=== PATIENT | female | born 1945 ===

== ENCOUNTER 2017-07-30 19:06 | Inpatient (IN) | payer MEDICARE, OTHER ==
[~2017-07-30] VITALS: Ht 157.5 cm; Wt 104.6 kg
[2017-07-30 21:20] VITALS: BP 120/75; PULSE 70; TEMP 36.9; O2SAT 96; Ht 157.5 cm; Wt 104.6 kg
--- NOTE | 2017-07-30 21:56 | Critical Care Consultation ---
Critical Care Consultation Date of Consultation: Jul 30, 2017. Attending Physician: Vinayak Quintana M.D. Reason for Consultation: Hypotension susp of Pulm Embolism History of Present Illness [place] duran underwent a total left knee replacement on Friday 07/28 without issue and was discharged on 07/29. Today patient was noted by daughter INO to be diaphoretic and patient complained of feeling poorly with nausea. She does state that her urine output is decreased and dark. She has had increasing shortness of breath with cough since the surgical procedure. Patient has not recorded any temperatures despite feeling warm temperature at [facility] was 97.7 F and she is also afebrile at this facility. During her time in the emergency room at [facility] patient was noted to be hypotensive with systolic pressures in the 80s requiring fluid boluses. Patient did undergo a 12-lead echocardiogram that was unremarkable however her troponin was elevated as was her CPK. Secondary to acute kidney injury patient could not undergo CT angiogram to rule out pulmonary embolism and was started on heparin infusion and transferred to [facility] as a direct admit. Upon my meeting the patient she is comfortable and not ill-appearing. Her blood pressures have resolved systolic was 120 during my examination. She has no acute complaints of calf tenderness knee tenderness at the site of operation. She is on 2 L nasal cannula and feels comfortable. Patient denies taking any post operative antibiotics in the outpatient setting. Patient states she has not been eating since the evening of her surgery on Wednesday. And has had very little fluid intake during this period of time as well. The patient denies weight loss, fever, dizziness, headache, muscle weakness, numbness, change in vision, sore throat, chest pain, palpitations, awareness of tachyarrhythmias, leg swelling, cough, bloody stools, diarrhea, constipation, abdominal pain, other changes in bowel habits. Patient continues with a mild amount of nausea but no vomiting. Past Medical/Surgical History Medical Problems: Troponin I above reference range Hypertension Anxiety/depression History of CVA Gout Obesity Hyperlipidemia History of UTIs Surgical history: Left total knee arthroplasty 07/28/2017 Social History Smoking Status: Never Smoker Marital Status: Housing Status: lives alone Allergies Coded Allergies: Sulfamethoxazole w/Trimethoprim (Verified Allergy, Intermediate, RASH, ) Sulfa Antibiotics (Verified Allergy, Unknown, RASH, 07/30/17) NEVER RECEIVED LASIX PER PATIENT. Home Medications Scheduled Allopurinol (Zyloprim), 1 TAB PO DAILY Alprazolam (Xanax), 0.5 MG PO HS Aspirin (Aspirin), 325 MG PO BID Atenolol/Chlorthalidone (Tenoretic 50 Mg/25 Mg), 1 TAB PO DAILY Citalopram Hydrobromide (Citalopram Hydrobromide), 1 TAB PO DAILY Melatonin (Melatonin Maximum Strengt), 1 TAB PO HS Omeprazole (Prilosec), 20 MG PO DAILY Polyethylene Glycol 3350 (Miralax), 17 GM PO DAILY Scheduled PRN Hydrocodon/Acetaminophen 5MG/300MG (Vicodin (5MG/300MG)), 2 TABS PO Q4H PRN for Pain Current Inpatient Medications Aspirin Hydrocodone\acetaminophen MiraLAX Xanax Allopurinol Atenolol/chlorthalidone Celexa Omeprazole Melatonin Review of Systems 12 systems reviewed and negative other than previously mentioned in the HPI. Physical Exam Vital Signs - as noted Laboratory Data - as noted Physical Exam: General - NAD Eyes - PERRL, EOMI No icterus, gaze conjugate ENT - Mucosa moist, no lesions or candidiasis Neck - Supple, trachea midline, no masses or lymphadenopathy, no JVD or bruits Lungs - No paradoxical chest wall movement, clear to auscultation bilaterally, no wheezes, rales, or rhonchi Heart - Reg rate and rhythm, No murmur, rubs, clicks, or gallops appreciated Abdomen - normoactive BS present, no bruits noted, tympanic to percussion, soft , nontender, nondistended, no organomegaly Extremities - Surgical dressing in place on left knee mild erythema without warmth or swelling noted, No edema, pedal pulses intact Neuro - A&OX3 Strength extremities equal and appropriate bilaterally Reflexes: Normal and equal CN:PERRL, EOMI, no facial asymmetry, uvula/tongue midline Laboratory Results SEE EMR Diagnostic Results Venous Doppler study of bilateral lower extremities demonstrates no evidence of DVT Assessment & Plan (1) ERIC (acute kidney injury) (2) Dehydration (3) Hypotension (4) Elevated troponin Reason Critically Ill: Patient is an 72-year-old female who is transferred to the ICU for hypotension in the setting of dehydration s/p L TKA with elevated lactic acid and cardiac enzymes without acute ischemia noted on EKG. PLAN: Neuro: * No unilateral changes noted * Patient does not report pain Resp: * Supplemental oxygen as required * Suspicious of pulmonary embolism * Continue heparin infusion * Bilateral lower extremity Doppler: pending * Adequate saturations on telemetry, titrate oxygen per protocol CV: * Elevated troponins in the setting of EKG without signs of acute ischemia * Trend troponin * Repeat EKG in a.m. * Obtain echocardiogram * Monitor on telemetry * Home atenolol/chlorthalidone held * Heart rate upper 60s monitor for tachycardia * Hypotension now resolved received 2500 cc of normal saline at [facility] prior to arrival * Blood pressure is running 120s-130s systolically Fluids/Renal: * Acute kidney injury noted likely secondary to dehydration * Continue fluids: Normal saline +20 mEq of potassium at 150 mL/h * Trend BUN and creatinine * Green in place to gravity ID: * Abx: We will continue to monitor for need of antibiotics * Currently patient is afebrile without a leukocytosis * However did have a lactic acid which has repeated as 2.1 GI/Nutrition: * Diet in place * Abnormal LFTs: Repeat following day * Protonix in place Heme: * Heparin infusion * No indication for DVT prophylaxis while on heparin infusion * Monitor hemoglobin and hematocrit, no signs of gross bleeding Endocrine: Accu-Checks per protocol, started insulin infusion for 2 blood sugars greater than 180 CCT: 45 Minutes; This time is exclusive of all separately billable procedures. Thank you for involving us in the care of this patient. Please refer to Dr. Florentin Mahajan's addendum for further recommendations.
[2017-07-30] MEDS ORDERED: ACETAMINOPHEN 325 MG TAB PO PRN (22:00)
[2017-07-30] MEDS ORDERED: HYDROmorphone HCL 2 MG TAB PO PRN (22:00)
[2017-07-30] MEDS ORDERED: ICU PROTOCOL FOR HYPERGLYCEMIA PRN (22:00)
[2017-07-30] MEDS ORDERED: PATIENT'S ALLERGY INFO NEEDS ENTERED SCH (22:15)
[2017-07-30] MEDS ORDERED: PATIENT'S HEIGHT AND/OR WEIGHT NEEDED SCH (22:15)
[2017-07-30 22:30] LABS: HEMATOCRIT 31.2 % (37-47); HEMOGLOBIN 11.3 g/dL (12.0-16.0); IG# 0.03 K/uL (0.00-0.02); LYMPH % 17.6 %; LYMPH ABS # 1.78 K/uL (1.2-3.4); MEAN CELL VOLUME 86.4 fL (80-100); MEAN CORPUSCULAR HEMOGLOBIN 31.3 pg (25-34); MEAN CORPUSCULAR HGB CONC 36.2 g/dl (32-36); MEAN PLATELET VOLUME 9.2 fL (7.4-10.4); MONO % 8.4 %; MONO ABS # 0.85 K/uL (0.11-0.59); NEUT % 73.7 %; NEUT ABS # 7.46 K/uL (1.4-6.5); PLATELET COUNT 154 K/uL (130-400); RED CELL DISTRIBUTION WIDTH CV 14.1 % (11.5-14.5); RED CELL DISTRIBUTION WIDTH SD 44.5 fL (36.4-46.3); WHITE BLOOD COUNT 10.12 K/uL (4.8-10.8)
--- NOTE | 2017-07-30 22:34 | History and Physical ---
History & Physical Date & Time of Service: Jul 30, 2017 at 22:08 Chief Complaint: SHOCK Primary Care Physician: No Doctor, Assigned History of Present Illness Source: patient 72 y/o F Hx HTN, NPL, gout, CVA, obesity. Pt is post L TKA at [facility] . Since the surgery, she states she has suffered from nausea and heaving without vomiting and has not had any PO intake aside from a small amount of water. Today when attempting to ambulate, she became profusely diaphoretic, SOB , and was noted to be hypoxic and mildly hypotensive. A workup at [facility] revealed multiple lab abnormalities including ARF, elevated LFTs, elevated lactic and an elevated CK and troponin. An EKG did not support acute ischemia. It was speculated that she may have suffered an acute PE. Due to her renal function, a CT chest was differed and a decision was made to transfer to [facility]. The pt was placed on full dose Heparin and arrived at the ICU a few hours later. At the time of admission, she denies CP or SOB. She remains mildly nauseous. She exhibits stable vital signs and does not display tachycardia or tachypnea. Her oxygen saturation on 2L NC is 98%. The pt is afebrile. Leukocytosis and lactic acidosis are noted on review of labs from [facility]. There is no clear source of infection at present. Past Medical/Surgical History 1) HTN 2) HPL 3) CVA on MRI 2013 4) Gout 5) Obese 6) L TKA - 07/28/17 Family History Noncontributory Social History Smoking Status: Never Smoker Allergies Coded Allergies: Sulfamethoxazole w/Trimethoprim (Verified Allergy, Intermediate, RASH, ) Sulfa Antibiotics (Verified Allergy, Unknown, RASH, 07/30/17) NEVER RECEIVED LASIX PER PATIENT. Home Medications Scheduled Allopurinol (Zyloprim), 1 TAB PO DAILY Alprazolam (Xanax), 0.5 MG PO HS Aspirin (Aspirin), 325 MG PO BID Atenolol/Chlorthalidone (Tenoretic 50 Mg/25 Mg), 1 TAB PO DAILY Citalopram Hydrobromide (Citalopram Hydrobromide), 1 TAB PO DAILY Melatonin (Melatonin Maximum Strengt), 1 TAB PO HS Omeprazole (Prilosec), 20 MG PO DAILY Polyethylene Glycol 3350 (Miralax), 17 GM PO DAILY Scheduled PRN Hydrocodon/Acetaminophen 5MG/300MG (Vicodin (5MG/300MG)), 2 TABS PO Q4H PRN for Pain Review of Systems Constitutional: + fever, + weakness Eyes: No worsening of vision ENT: No hearing loss, No nasal symptoms Respiratory: + shortness of breath (AM - resolved), No cough, No sputum, No wheezing Cardiovascular: No chest pain, No orthopnea, No PND Abdomen: + nausea, + problem reported (dry heaving and poor alexandr), No pain Genitourinary - Female: No dysuria, No urinary frequency, No urinary urgency Neurologic: No memory loss, No weakness Psychiatric: No depression symptoms Endocrine: No fatigue Hematologic / Lymphatic: No abnormal bleeding/bruising Integumentary: No rash Allergic / Immunologic: No environmental allergies Physical Exam General Appearance: WD/WN, no apparent distress, + obese Head: normocephalic Eyes: normal inspection ENT: normal ENT inspection, pharynx normal Neck: supple Respiratory/Chest: chest non-tender, lungs clear, normal breath sounds Cardiovascular: regular rate, rhythm, no edema, no gallop Abdomen/GI: normal bowel sounds, non tender, soft Back: normal inspection, no CVA tenderness Extremities/Musculoskelatal: + pertinent finding (L leg surgical wound - no evidence of infection or cellulitis presently) 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 Pt is post L TKA at [facility] . Since the surgery, she states she has suffered from nausea and heaving without vomiting and has not had any PO intake aside from a small amount of water. Today when attempting to ambulate, she became profusely diaphoretic, SOB , and was noted to be hypoxic and mildly hypotensive. A workup at [facility] revealed multiple lab abnormalities including ARF, elevated LFTs, elevated lactic and an elevated CK and troponin. An EKG did not support acute ischemia. It was speculated that she may have suffered an acute PE. Due to her renal function, a CT chest was differed and a decision was made to transfer to [facility]. The pt was placed on full dose Heparin and arrived at the ICU a few hours later. At the time of admission, she denies CP or SOB. She remains mildly nauseous. She exhibits stable vital signs and does not display tachycardia or tachypnea. Her oxygen saturation on 2L NC is 98%. The pt is afebrile. Leukocytosis and lactic acidosis are noted on review of labs from [facility]. There is no clear source of infection at present. 1) Elevated trop post-op - differential includes NSTEMI, sepsis, PE. ARF may be contributing to elevation. She has been placed on Heparin. ASA and a Statin will be added. We will recheck her renal function AM and if this corrects we would consider a CTA. For now a LE US is pending as is an echo to evaluate for wall motion abnormalities. 2) Possible sepsis - we are not presently able to confirm fevers or a source of infection - consideration would be the op site and a lung process which have not been ruled out. A UA is pending on admission as is a repeat lactic and CBC. We will make a decision on antibiotic treatment based on the result. 3) ARF - likely prerenal or ATN post-op - will obtain urine lytes and continue aggressive hydration 4) LFTs elevated - possibly due to hypotension/shock liver - no evidence of acute abdominal process at present 5) HTN - she normally takes a combination of Atenolol and a diuretic. Held in favor of a divided dose of Metoprolol with parameters 6) HPL - Placed on Lipitor 7) Gout - Allopurinol held due to ARF - employ steroids in event of flair if renal impairment persists 8) History of CVA - ASA, Statin provided 9) Gout - Hold Allopurinol due to ARF Full code - Full-dose Heparin Total time for this admit including review of labs, meds, imaging, records - discussion with pt, family and ICU attending - including critical care time - 48 min Resuscitation Status VTE Prophylaxis Will order VTE Prophylaxis: Yes
[2017-07-30 22:46] LABS: ALBUMIN 2.7 gm/dl (3.4-5.0); CREATININE 1.91 mg/dl (0.60-1.20); POTASSIUM 3.7 mmol/L (3.5-5.1)
[2017-07-30 22:48] LABS: INR 1.3 (0.9-1.1)
[2017-07-30 22:49] LABS: PTT PATIENT 62.3 SECONDS (21.0-31.0)
[2017-07-30] MEDS: HEPARIN 25,000 UNIT/500ML D5W 500 ML IV SCH (23:12)
[2017-07-30] MEDS: NSS + 20MEQ KCL 1000ML 1,000 ML IV SCH (23:13)
[2017-07-30] MEDS ORDERED: ASPECOTC PO (23:41)
[2017-07-30] MEDS ORDERED: HYDR-3419 PO (23:42)
[2017-07-30] MEDS ORDERED: ALPR-411 PO (23:43)
[2017-07-30] MEDS ORDERED: POLY335019 PO (23:43)
[2017-07-30] MEDS ORDERED: ALLO100T PO (23:44)
[2017-07-30] MEDS ORDERED: ATEN-171 PO (23:44)
[2017-07-30] MEDS ORDERED: CITA20TA4 PO (23:45)
[2017-07-30] MEDS ORDERED: PRLSR20 PO (23:46)
[2017-07-30] MEDS ORDERED: MELATAB2 PO (23:47)
[2017-07-31] VITALS (13 sets, daily range): BP systolic 104–146; BP diastolic 59–86; PULSE 69–84; TEMP 36.3–37.1; O2SAT 92–98
[2017-07-31] MEDS: NSS + 20MEQ KCL 1000ML 1,000 ML IV SCH ×4 (05:59→20:38)
[2017-07-31 06:04] LABS: BASO % 0.2 %; BASO ABS # 0.02 K/uL (0-0.2); EOS % 0.2 %; EOS ABS # 0.02 K/uL (0-0.5); HEMATOCRIT 30.5 % (37-47); HEMOGLOBIN 10.5 g/dL (12.0-16.0); IG# 0.01 K/uL (0.00-0.02); LYMPH % 19.1 %; LYMPH ABS # 2.09 K/uL (1.2-3.4); MEAN CELL VOLUME 87.4 fL (80-100); MEAN CORPUSCULAR HEMOGLOBIN 30.1 pg (25-34); MEAN CORPUSCULAR HGB CONC 34.4 g/dl (32-36); MEAN PLATELET VOLUME 9.7 fL (7.4-10.4); MONO % 8.7 %; MONO ABS # 0.95 K/uL (0.11-0.59); NEUT % 71.7 %; NEUT ABS # 7.85 K/uL (1.4-6.5); PLATELET COUNT 172 K/uL (130-400); RED CELL DISTRIBUTION WIDTH CV 14.1 % (11.5-14.5); RED CELL DISTRIBUTION WIDTH SD 44.9 fL (36.4-46.3); WHITE BLOOD COUNT 10.94 K/uL (4.8-10.8)
--- NOTE | 2017-07-31 06:05 | DIAGNOSTIC IMAGING REPORT ---
ULTRASOUND VENOUS DOPPLER LWR EXT BILA CLINICAL HISTORY: Suspected pulmonary embolism. History of total knee arthroplasty. EKG changes. COMPARISON STUDY: No previous studies for comparison. FINDINGS: Real-time and color flow Doppler imaging were performed. Flow was seen within the femoral, popliteal and calf veins with no intraluminal thrombus demonstrated. The saphenous vein is patent. IMPRESSION: No evidence of lower extremity DVT. Electronically signed by: Lui Onofre M.D. 07/31/2017 6:04 AM Dictated Date/Time: 07/31/2017 6:03 AM
[2017-07-31 06:26] LABS: PTT PATIENT 74.4 SECONDS (21.0-31.0)
[2017-07-31 06:38] LABS: ALBUMIN 2.6 gm/dl (3.4-5.0); CALCIUM 8.7 mg/dl (8.5-10.1); CREATININE 1.42 mg/dl (0.60-1.20); POTASSIUM 3.7 mmol/L (3.5-5.1)
[2017-07-31 06:46] LABS: TOTAL PROTEIN 5.7 gm/dl (6.4-8.2)
[2017-07-31] MEDS: ATORVASTATIN 20 MG TAB PO SCH ×2 (07:41→09:00)
[2017-07-31] MEDS: CITALOPRAM 20 MG TAB PO SCH (07:41)
[2017-07-31] MEDS: PANTOprazole SOD 40 MG TAB PO SCH (07:41)
[2017-07-31] MEDS: ASPIRIN 81 MG ECTAB PO SCH (07:41)
[2017-07-31] MEDS: MAGNESIUM OXIDE 400 MG TAB PO SCH ×3 (07:41→18:14)
[2017-07-31] MEDS: METOPROLOL TARTRATE 25 MG TAB PO SCH ×2 (07:41→20:21)
[2017-07-31] MEDS ORDERED: ROSU5TAB PO (09:11)
[2017-07-31] MEDS ORDERED: ROSUVASTATIN CALCIUM 5 MG TAB PO ONE (09:15)
[2017-07-31] MEDS ORDERED: OXYCODONE HCL IR 5 MG TAB (IMMEDIATE RELEASE) PO PRN (09:15)
[2017-07-31] MEDS: HYDROCODONE/ACETAMIN 5/325MG TAB PO PRN ×2 (11:28→20:22)
[2017-07-31 13:23] LABS: PTT PATIENT 66.5 SECONDS (21.0-31.0)
--- NOTE | 2017-07-31 14:49 | Critical Care Progress Note ---
Critical Care Progress Note Date of Service Jul 31, 2017. ICU Day ICU Day Number: [address] Mahajan Subjective No complaints of chest pain, shortness of breath, fevers, chills, nausea, vomiting. No complaints of bleeding of the left lower extremity, no significant pain in the left lower extremity. Sitting upright in the chair tolerated breakfast well Objective General: Alert. nontoxic. Skin: Warm, dry, Head: Atraumatic Ears, nose, mouth and throat: airway patent Cardiovascular: Normal peripheral perfusion Respiratory: no respiratory distress Gastrointestinal: Non distended Musculoskeletal: Dressing over her left knee, very small shadowing at inferior portion of the dressing, no evidence of surrounding cellulitis nor erythema outside of the dressing. Assessment & Plan PLAN: Neuro: * No unilateral changes noted * Patient does not report pain Resp: * Tolerating room air * Bilateral venous duplex negative * Much lower suspicion for pulmonary embolism CV: Prolonged QTC * Elevated troponins in the setting of EKG without signs of acute ischemia * Troponins decreasing * Repeat EKG: Prolonged QTC and diffuse T-wave inversions that were not present on EKG compared to prior EKG from outside hospital * Obtain echocardiogram * Continue heparin infusion for possible N STEMI * Monitor on telemetry * Home atenolol/chlorthalidone held * Heart rate upper 60s monitor for tachycardia * Hypotension now resolved received 2500 cc of normal saline at [facility] prior to arrival * Blood pressure is running 120s-130s systolically Fluids/Renal: * Acute kidney injury noted likely secondary to dehydration * Significant improvement * Green in place to gravity ID: * Abx: continue to monitor for need of antibiotics * I do not feel the patient is septic, I believe this is secondary to volume depletion GI/Nutrition: * Diet in place Transaminitis * Abnormal LFTs: Repeat following day * Hepatitis C negative * Significance of a transaminitis unclear at this time * Protonix in place Heme: * Heparin infusion * Monitor hemoglobin and hematocrit, no signs of gross bleeding Endocrine: Accu-Checks per protocol I believe the patient's hypotension and shock state was secondary to profound volume depletion. I would continue the heparin drip at this time and on further trend and monitor her cardiovascular status I think the diagnosis of pulmonary embolism is considerably much lower on the differential and the heparin drip would certainly be therapeutic if that were in fact the diagnosis. Given the stable vital signs and resolution of her lactic acidosis I believe she is stable for downgrade to telemetry status. Data Medications: Current Inpatient Medications Medications (Trade) Dose Ordered Sig/Estiven Route Start Time Stop Time Status Last Admin Dose Admin Acetaminophen (Tylenol Tab) 650 mg Q4H PRN PO 07/30/17 22:00 08/29/17 21:59 Aspirin (Ecotrin Tab) 81 mg QAM PO 07/31/17 09:00 08/30/17 08:59 07/31/17 07:41 81 MG Pantoprazole Sodium (Protonix Tab) 40 mg DAILY PO 07/31/17 09:00 08/30/17 08:59 07/31/17 07:41 40 MG Hydromorphone HCl (Dilaudid Tab) 0.5 mg Q4H PRN PO 07/30/17 22:00 08/13/17 21:59 Miscellaneous Information (Icu Protocol For Hyperglycemia) 1 ea PRN PRN N/A 07/30/17 22:00 08/01/17 21:59 Heparin Sodium/ Dextrose 500 ml @ 25 mls/hr Q20H IV 07/30/17 22:45 08/29/17 22:44 07/30/17 23:12 26 MLS/HR Alprazolam (Xanax Tab) 0.5 mg HS PO 07/31/17 21:00 08/30/17 20:59 Citalopram Hydrobromide (celeXA TAB) 20 mg DAILY PO 07/31/17 09:00 08/30/17 08:59 07/31/17 07:41 20 MG Acetaminophen/ Hydrocodone Bitart ([place] 5/325 Tab) 2 tab Q4H PRN PO 07/31/17 00:15 08/30/17 00:14 07/31/17 11:28 2 TAB Metoprolol Tartrate (Lopressor Tab) 25 mg BID PO 07/31/17 09:00 08/30/17 08:59 07/31/17 07:41 25 MG Magnesium Oxide (Mag-Ox Tab) 400 mg Q4H PO 07/31/17 07:15 07/31/17 15:16 07/31/17 11:28 400 MG Rosuvastatin Calcium (Crestor Tab) 5 mg QAM PO 08/01/17 09:00 08/31/17 08:59 Potassium Chloride/Sodium Chloride 1,000 ml @ 150 mls/hr Q6H40M IV 07/31/17 09:45 08/30/17 09:44 07/31/17 13:53 150 MLS/HR Miscellaneous Information (Nursing Heparin Iv Rate Change) 1 ea ONE ONCE N/A 07/31/17 14:10 07/31/17 14:11 UNV I & O: 24-Hour Column 08/01/17 08:00 Intake Total 1850 ml Output Total 350 ml Balance 1500 ml Vital Signs: Date Time Temp Pulse Resp B/P (MAP) Pulse Ox O2 Delivery O2 Flow Rate FiO2 07/31/17 12:47 36.4 84 18 104/59 (74) 96 Room Air 07/31/17 12:01 93 Room Air 07/31/17 10:45 36.5 71 18 110/69 (83) 93 Room Air 07/31/17 10:19 37.1 70 18 98 2.0 07/31/17 08:00 37.1 70 18 104/64 (77) 98 Nasal Cannula 2.0 07/31/17 08:00 98 Nasal Cannula 2.0 07/31/17 06:00 69 20 118/86 (97) 95 Nasal Cannula 2.0 07/31/17 04:00 36.7 70 18 146/65 (92) 96 Nasal Cannula 2.0 07/31/17 04:00 Nasal Cannula 2.0 07/31/17 02:00 71 20 115/79 (91) 94 Nasal Cannula 2.0 07/31/17 00:01 36.9 72 22 117/59 (78) 96 Nasal Cannula 2.0 07/30/17 23:59 Nasal Cannula 2.0 07/30/17 21:20 36.9 70 16 120/75 96 Nasal Cannula 2.0 Laboratory Results: Last 24 Hours Test 07/30/17 22:12 07/30/17 22:19 07/30/17 23:10 07/31/17 05:50 Prothrombin Time 13.7 SECONDS Prothromb Time International Ratio 1.3 Activated Partial Thromboplast Time 62.3 SECONDS 74.4 SECONDS Partial Thromboplastin Ratio 2.4 2.9 White Blood Count 10.12 K/uL 10.94 K/uL Red Blood Count 3.61 M/uL 3.49 M/uL Hemoglobin 11.3 g/dL 10.5 g/dL Hematocrit 31.2 % 30.5 % Mean Corpuscular Volume 86.4 fL 87.4 fL Mean Corpuscular Hemoglobin 31.3 pg 30.1 pg Mean Corpuscular Hemoglobin Concent 36.2 g/dl 34.4 g/dl Platelet Count 154 K/uL 172 K/uL Mean Platelet Volume 9.2 fL 9.7 fL Neutrophils (%) (Auto) 73.7 % 71.7 % Lymphocytes (%) (Auto) 17.6 % 19.1 % Monocytes (%) (Auto) 8.4 % 8.7 % Eosinophils (%) (Auto) 0.0 % 0.2 % Basophils (%) (Auto) 0.0 % 0.2 % Neutrophils # (Auto) 7.46 K/uL 7.85 K/uL Lymphocytes # (Auto) 1.78 K/uL 2.09 K/uL Monocytes # (Auto) 0.85 K/uL 0.95 K/uL Eosinophils # (Auto) 0.00 K/uL 0.02 K/uL Basophils # (Auto) 0.00 K/uL 0.02 K/uL RDW Standard Deviation 44.5 fL 44.9 fL RDW Coefficient of Variation 14.1 % 14.1 % Immature Granulocyte % (Auto) 0.3 % 0.1 % Immature Granulocyte # (Auto) 0.03 K/uL 0.01 K/uL Sodium Level 131 mmol/L 131 mmol/L Potassium Level 3.7 mmol/L 3.7 mmol/L Chloride Level 97 mmol/L 99 mmol/L Carbon Dioxide Level 26 mmol/L 27 mmol/L Anion Gap 8.0 mmol/L 5.0 mmol/L Blood Urea Nitrogen 23 mg/dl 23 mg/dl Creatinine 1.91 mg/dl 1.42 mg/dl Est Creatinine Clear Calc Drug Dose 30.7 ml/min 41.2 ml/min Estimated GFR () 30.0 43.0 Estimated GFR (Non- 25.9 37.1 BUN/Creatinine Ratio 12.2 16.0 Random Glucose 115 mg/dl 99 mg/dl Lactic Acid Level 2.1 mmol/L 1.2 mmol/L Calcium Level 9.0 mg/dl 8.7 mg/dl Magnesium Level 1.6 mg/dl 1.6 mg/dl Total Bilirubin 0.7 mg/dl 0.6 mg/dl Direct Bilirubin 0.3 mg/dl 0.2 mg/dl Aspartate Amino Transf (AST/SGOT) 445 U/L 383 U/L Alanine Aminotransferase (ALT/SGPT) 263 U/L 245 U/L Alkaline Phosphatase 57 U/L 52 U/L Troponin I 1.090 ng/ml 0.838 ng/ml Total Protein 6.0 gm/dl 5.7 gm/dl Albumin 2.7 gm/dl 2.6 gm/dl Globulin 3.3 gm/dl Albumin/Globulin Ratio 0.8 Hepatitis C Antibody Screen NEG Urine Color DK YELLOW Urine Appearance CLEAR Urine pH 5.0 Urine Specific [employer] 1.019 Urine Protein TRACE Urine Glucose (UA) NEG Urine Ketones NEG Urine Occult Blood NEG Urine Nitrite NEG Urine Bilirubin NEG Urine Urobilinogen NEG Urine Leukocyte Esterase NEG Urine WBC (Auto) 1-5 /hpf Urine RBC (Auto) 0-4 /hpf Urine Hyaline Casts (Auto) >30 /lpf Urine Epithelial Cells (Auto) 20-30 /lpf Urine Bacteria (Auto) NEG Urine Pathogenic Casts /lpf Test 07/31/17 07:10 07/31/17 12:38 07/31/17 13:19 Lipase 75 U/L Activated Partial Thromboplast Time 66.5 SECONDS Partial Thromboplastin Ratio 2.6 Troponin I 0.645 ng/ml
--- NOTE | 2017-07-31 15:26 | DIAGNOSTIC IMAGING REPORT ---
CHEST CTA for PULMONARY ARTERIES CT DOSE: 666.55 mGy.cm HISTORY: Dyspnea. TECHNIQUE: Multiaxial CT images of the chest were performed following the intravenous administration of contrast to evaluate the pulmonary arteries. Maximal intensity projection images were also obtained. A dose lowering technique was utilized adhering to the principles of ALARA. COMPARISON STUDY: None. FINDINGS: Post as we. The visualized liver, spleen, and adrenal glands are unremarkable. Small hiatus hernia. Trace right pleural effusion. No pericardial effusion. The heart is borderline enlarged. No mediastinal or hilar lymphadenopathy. No fractures within the visualized osseous structures. No pneumothorax. The central airways are patent. Bibasilar linear densities consistent with subsegmental atelectasis. Mild pleural/subpleural nodularity within the base of the right lower lobe. The main pulmonary arteries are patent. Normal caliber thoracic aorta with no evidence for dissection. There are few scattered segmental and subsegmental filling defects seen within the right upper lobe, right middle lobe, and bilateral lower lobes consistent with pulmonary emboli. Flattening of the ventricular septum consistent with mild right-sided heart strain. IMPRESSION: 1. Bilateral segmental/subsegmental pulmonary emboli. There appears to be mild right-sided heart strain. 2. Trace right pleural effusion. 3. Question of subtle pleural nodularity within the right lung base. [address] follow-up is recommended to ensure resolution. 4. Bibasilar linear densities are nonspecific but favor subsegmental atelectasis. Electronically signed by: Bruno Newman M.D. 07/31/2017 3:24 PM Dictated Date/Time: 07/31/2017 3:15 PM
--- NOTE | 2017-07-31 16:12 | Family Medicine Progress Note ---
Progress Note Date of Service Jul 31, 2017. Subjective Pt evaluation today including: conversation w/ patient, conversation w/ family , physical exam, chart review, lab review Patient feels much better today. Denies dyspnea. Yesterday when attempting to ambulate the patient became diaphoretic, SOB. She was also hypoxic and mildly hypotensive. Medications Current Inpatient Medications Medications (Trade) Dose Ordered Sig/Estiven Route Start Time Stop Time Status Last Admin Dose Admin Acetaminophen (Tylenol Tab) 650 mg Q4H PRN PO 07/30/17 22:00 08/29/17 21:59 Aspirin (Ecotrin Tab) 81 mg QAM PO 07/31/17 09:00 08/30/17 08:59 07/31/17 07:41 81 MG Pantoprazole Sodium (Protonix Tab) 40 mg DAILY PO 07/31/17 09:00 08/30/17 08:59 07/31/17 07:41 40 MG Hydromorphone HCl (Dilaudid Tab) 0.5 mg Q4H PRN PO 07/30/17 22:00 08/13/17 21:59 Heparin Sodium/ Dextrose 500 ml @ 25 mls/hr Q20H IV 07/30/17 22:45 08/29/17 22:44 07/30/17 23:12 26 MLS/HR Alprazolam (Xanax Tab) 0.5 mg HS PO 07/31/17 21:00 08/30/17 20:59 Citalopram Hydrobromide (celeXA TAB) 20 mg DAILY PO 07/31/17 09:00 08/30/17 08:59 07/31/17 07:41 20 MG Acetaminophen/ Hydrocodone Bitart ([place] 5/325 Tab) 2 tab Q4H PRN PO 07/31/17 00:15 08/30/17 00:14 07/31/17 11:28 2 TAB Metoprolol Tartrate (Lopressor Tab) 25 mg BID PO 07/31/17 09:00 08/30/17 08:59 07/31/17 07:41 25 MG Rosuvastatin Calcium (Crestor Tab) 5 mg QAM PO 08/01/17 09:00 08/31/17 08:59 Potassium Chloride/Sodium Chloride 1,000 ml @ 150 mls/hr Q6H40M IV 07/31/17 09:45 08/30/17 09:44 07/31/17 13:53 150 MLS/HR Objective Vital Signs Date Time Temp Pulse Resp B/P (MAP) Pulse Ox O2 Delivery O2 Flow Rate FiO2 07/31/17 15:00 36.3 80 18 118/74 (89) 93 Room Air 07/31/17 12:47 36.4 84 18 104/59 (74) 96 Room Air 07/31/17 12:01 93 Room Air 07/31/17 10:45 36.5 71 18 110/69 (83) 93 Room Air 07/31/17 10:19 37.1 70 18 98 2.0 07/31/17 08:00 37.1 70 18 104/64 (77) 98 Nasal Cannula 2.0 07/31/17 08:00 98 Nasal Cannula 2.0 07/31/17 06:00 69 20 118/86 (97) 95 Nasal Cannula 2.0 07/31/17 04:00 36.7 70 18 146/65 (92) 96 Nasal Cannula 2.0 07/31/17 04:00 Nasal Cannula 2.0 07/31/17 02:00 71 20 115/79 (91) 94 Nasal Cannula 2.0 07/31/17 00:01 36.9 72 22 117/59 (78) 96 Nasal Cannula 2.0 07/30/17 23:59 Nasal Cannula 2.0 07/30/17 21:20 36.9 70 16 120/75 96 Nasal Cannula 2.0 Physical Exam General Appearance: WD/WN, no apparent distress Neck: supple, no adenopathy Respiratory/Chest: chest non-tender, lungs clear, normal breath sounds Cardiovascular: regular rate, rhythm, no edema, no murmur Abdomen: normal bowel sounds, non tender, soft Extremities: + pertinent finding (warm left knee) Neurologic/Psychiatric: alert, normal mood/affect, oriented x 3 Skin: normal color, warm/dry, no rash Laboratory Results 07/31/17 05:50 Red Blood Count 3.49, Mean Corpuscular Volume 87.4, Mean Corpuscular Hemoglobin 30.1, Mean Corpuscular Hemoglobin Concent 34.4, Mean Platelet Volume 9.7, Neutrophils (%) (Auto) 71.7, Lymphocytes (%) (Auto) 19.1, Monocytes (%) (Auto) 8.7, Eosinophils (%) (Auto) 0.2, Basophils (%) (Auto) 0.2, Neutrophils # (Auto) 7.85, Lymphocytes # (Auto) 2.09, Monocytes # (Auto) 0.95, Eosinophils # (Auto) 0.02, Basophils # (Auto) 0.02 07/31/17 05:50 Test 07/30/17 22:12 07/30/17 22:19 07/30/17 23:10 07/31/17 05:50 Prothrombin Time 13.7 SECONDS (9.0-12.0) Prothromb Time International Ratio 1.3 (0.9-1.1) Globulin 3.3 gm/dl (2.5-4.0) Albumin/Globulin Ratio 0.8 (0.9-2) Hepatitis C Antibody Screen NEG (NEG) Urine Color DK YELLOW Urine Appearance CLEAR (CLEAR) Urine pH 5.0 (4.5-7.5) Urine Specific [place] 1.019 (1.000-1.030) Urine Protein TRACE (NEG) Urine Glucose (UA) NEG (NEG) Urine Ketones NEG (NEG) Urine Occult Blood NEG (NEG) Urine Nitrite NEG (NEG) Urine Bilirubin NEG (NEG) Urine Urobilinogen NEG (NEG) Urine Leukocyte Esterase NEG (NEG) Urine WBC (Auto) 1-5 /hpf (0-5) Urine RBC (Auto) 0-4 /hpf (0-4) Urine Hyaline Casts (Auto) >30 /lpf (0-5) Urine Epithelial Cells (Auto) 20-30 /lpf (0-5) Urine Bacteria (Auto) NEG (NEG) Urine Pathogenic Casts /lpf (0) White Blood Count 10.94 K/uL (4.8-10.8) Red Blood Count 3.49 M/uL (4.2-5.4) Hemoglobin 10.5 g/dL (12.0-16.0) Hematocrit 30.5 % (37-47) Mean Corpuscular Volume 87.4 fL (80-100) Mean Corpuscular Hemoglobin 30.1 pg (25-34) Mean Corpuscular Hemoglobin Concent 34.4 g/dl (32-36) Platelet Count 172 K/uL (130-400) Mean Platelet Volume 9.7 fL (7.4-10.4) Neutrophils (%) (Auto) 71.7 % Lymphocytes (%) (Auto) 19.1 % Monocytes (%) (Auto) 8.7 % Eosinophils (%) (Auto) 0.2 % Basophils (%) (Auto) 0.2 % Neutrophils # (Auto) 7.85 K/uL (1.4-6.5) Lymphocytes # (Auto) 2.09 K/uL (1.2-3.4) Monocytes # (Auto) 0.95 K/uL (0.11-0.59) Eosinophils # (Auto) 0.02 K/uL (0-0.5) Basophils # (Auto) 0.02 K/uL (0-0.2) RDW Standard Deviation 44.9 fL (36.4-46.3) RDW Coefficient of Variation 14.1 % (11.5-14.5) Immature Granulocyte % (Auto) 0.1 % Immature Granulocyte # (Auto) 0.01 K/uL (0.00-0.02) Anion Gap 5.0 mmol/L (3-11) Est Creatinine Clear Calc Drug Dose 41.2 ml/min Estimated GFR () 43.0 Estimated GFR (Non- 37.1 BUN/Creatinine Ratio 16.0 (10-20) Lactic Acid Level 1.2 mmol/L (0.4-2.0) Calcium Level 8.7 mg/dl (8.5-10.1) Magnesium Level 1.6 mg/dl (1.8-2.4) Total Bilirubin 0.6 mg/dl (0.2-1) Direct Bilirubin 0.2 mg/dl (0-0.2) Aspartate Amino Transf (AST/SGOT) 383 U/L (15-37) Alanine Aminotransferase (ALT/SGPT) 245 U/L (12-78) Alkaline Phosphatase 52 U/L (45-117) Total Protein 5.7 gm/dl (6.4-8.2) Albumin 2.6 gm/dl (3.4-5.0) Test 07/31/17 07:10 07/31/17 12:38 07/31/17 13:19 Lipase 75 U/L (73-393) Activated Partial Thromboplast Time 66.5 SECONDS (21.0-31.0) Partial Thromboplastin Ratio 2.6 Troponin I 0.645 ng/ml (0-0.045) Date/Time Source Procedure Growth Status 07/30/17 22:45 Nasal MRSA DNA Surveillance Screen - Final Specimen Negative for MRSA by DNA Probe Complete Assessment and Plan 72 Female s/p left knee replacement on 07/28 presents to [facility] with dyspnea. She reports decreased PO intake since the surgery and prior to admission experienced dyspnea, diaphoresis, hypoxia and hypotension. The patient was found to have elevated troponin, LFT's, Cr and lactic acid. Trops have trended down since admission. The following differential was considered; PE, atypical SC and sepsis and the patient was subsequently started on a heparin drip and IVF. Chest CT was performed today following hydration and recovery of Cr and showed bilateral PE. Bilateral Pulmonary Embolism--s/p recent knee replacement -Continue heparin drip -EKG q am and with chest pain - start coumadin in am. Transaminitis -Possibly 2/2 dehydration, poor PO intake, liver shock -Considering abdominal USG if no improvement -Follow LFT's ERIC -Likely prerenal cause--resolving with hydration s/p recent Left knee replacement - No sign of infection at this time. - Follow Subpleural nodularity incidentally found on CT -[address] scan recommended HTN -Continue Metoprolol HLD -Continue Crestor Gout -Holding allopurinol Depression/anxiety -Celexa, Xanax DVT; IV heparin, ASA Full code Reviewed: Pt Seen/Exam by Me History feeling much better. Constitutional: denies: fever Respiratory: negative: short of breath Cardiovascular: denies chest pain General Appearance: no apparent distress Respiratory: lungs clear, no respiratory distress Cardiovascular: regular rate, rhythm Extremities: other (left knee with swelling and some warmth. ) Neurologic/Psychiatric: alert, oriented x 3 Skin Characteristics: warm/dry Assessment/Plan Resident Physician Supervision Note: I independently interviewed and examined the patient and verified the bach history and physical, reviewed labs and image studies, discussed the case with the resident Dr. Guerrero and agree with the findings and care plan.
[2017-07-31] MEDS: HEPARIN 25,000 UNIT/500ML D5W 500 ML IV SCH (18:14)
[2017-07-31] MEDS: ALPRAZOLAM 0.5 MG TAB PO SCH (20:21)
[2017-07-31] MEDS ORDERED: NON-FORMULARY MEDICATION (Melatonin (Melatonin Maximum Strengt) 1 TAB) PO SCH (21:00)
[2017-08-01] VITALS (8 sets, daily range): BP systolic 95–141; BP diastolic 66–85; PULSE 78–95; TEMP 36.3–36.9; O2SAT 91–97
[2017-08-01] MEDS: NSS + 20MEQ KCL 1000ML 1,000 ML IV SCH (03:31)
[2017-08-01 06:45] LABS: BASO % 0.1 %; BASO ABS # 0.01 K/uL (0-0.2); EOS % 0.6 %; EOS ABS # 0.05 K/uL (0-0.5); HEMATOCRIT 29.3 % (37-47); HEMOGLOBIN 10.3 g/dL (12.0-16.0); IG# 0.02 K/uL (0.00-0.02); LYMPH % 14.8 %; LYMPH ABS # 1.24 K/uL (1.2-3.4); MEAN CELL VOLUME 87.7 fL (80-100); MEAN CORPUSCULAR HEMOGLOBIN 30.8 pg (25-34); MEAN CORPUSCULAR HGB CONC 35.2 g/dl (32-36); MEAN PLATELET VOLUME 9.4 fL (7.4-10.4); MONO % 9.5 %; NEUT % 74.8 %; NEUT ABS # 6.28 K/uL (1.4-6.5); PLATELET COUNT 185 K/uL (130-400); RED CELL DISTRIBUTION WIDTH CV 14.2 % (11.5-14.5); RED CELL DISTRIBUTION WIDTH SD 45.6 fL (36.4-46.3)
[2017-08-01 07:11] LABS: INR 1.2 (0.9-1.1)
[2017-08-01 07:13] LABS: ALBUMIN 2.5 gm/dl (3.4-5.0); CREATININE 1.05 mg/dl (0.60-1.20); PTT PATIENT 56.6 SECONDS (21.0-31.0)
[2017-08-01] MEDS ORDERED: PERFLUTREN LIPID MICROSPHERE (DEFINITY) IV ONE (07:15)
[2017-08-01 07:24] LABS: TOTAL PROTEIN 6.1 gm/dl (6.4-8.2)
[2017-08-01] MEDS: CITALOPRAM 20 MG TAB PO SCH (08:33)
[2017-08-01] MEDS: METOPROLOL TARTRATE 25 MG TAB PO SCH ×2 (08:33→20:30)
[2017-08-01] MEDS: ROSUVASTATIN CALCIUM 5 MG TAB PO SCH (08:33)
[2017-08-01] MEDS: PANTOprazole SOD 40 MG TAB PO SCH (08:33)
[2017-08-01] MEDS: ASPIRIN 81 MG ECTAB PO SCH (08:34)
[2017-08-01] MEDS: HYDROCODONE/ACETAMIN 5/325MG TAB PO PRN ×2 (09:54→20:31)
--- NOTE | 2017-08-01 10:49 | Family Medicine Progress Note ---
Progress Note Date of Service Aug 01, 2017. Subjective Pt evaluation today including: conversation w/ patient, physical exam, chart review, lab review Constitutional: No fever, No chills, No weight loss Respiratory: No cough, No sputum, No wheezing, No shortness of breath Cardiovascular: No chest pain, No palpitations Abdomen: No pain, No nausea, No vomiting Female : No dysuria Medications Current Inpatient Medications Medications (Trade) Dose Ordered Sig/Estiven Route Start Time Stop Time Status Last Admin Dose Admin Acetaminophen (Tylenol Tab) 650 mg Q4H PRN PO 07/30/17 22:00 08/29/17 21:59 Aspirin (Ecotrin Tab) 81 mg QAM PO 07/31/17 09:00 08/30/17 08:59 08/01/17 08:34 81 MG Pantoprazole Sodium (Protonix Tab) 40 mg DAILY PO 07/31/17 09:00 08/30/17 08:59 08/01/17 08:33 40 MG Hydromorphone HCl (Dilaudid Tab) 0.5 mg Q4H PRN PO 07/30/17 22:00 08/13/17 21:59 Heparin Sodium/ Dextrose 500 ml @ 25 mls/hr Q20H IV 07/30/17 22:45 08/29/17 22:44 07/31/17 18:14 25 MLS/HR Alprazolam (Xanax Tab) 0.5 mg HS PO 07/31/17 21:00 08/30/17 20:59 07/31/17 20:21 0.5 MG Citalopram Hydrobromide (celeXA TAB) 20 mg DAILY PO 07/31/17 09:00 08/30/17 08:59 08/01/17 08:33 20 MG Acetaminophen/ Hydrocodone Bitart ([place] 5/325 Tab) 2 tab Q4H PRN PO 07/31/17 00:15 08/30/17 00:14 08/01/17 09:54 2 TAB Metoprolol Tartrate (Lopressor Tab) 25 mg BID PO 07/31/17 09:00 08/30/17 08:59 08/01/17 08:33 25 MG Rosuvastatin Calcium (Crestor Tab) 5 mg QAM PO 08/01/17 09:00 08/31/17 08:59 08/01/17 08:33 5 MG Warfarin Sodium (Coumadin Tab) 5 mg DAILY@16 PO 08/01/17 16:00 08/31/17 15:59 Objective Vital Signs Date Time Temp Pulse Resp B/P (MAP) Pulse Ox O2 Delivery O2 Flow Rate FiO2 08/01/17 08:22 36.8 95 18 138/85 (102) 93 Room Air 08/01/17 08:00 93 Room Air 08/01/17 05:49 36.3 78 20 100/71 (81) 95 Room Air 08/01/17 04:00 Room Air 08/01/17 00:01 36.5 81 19 95/66 (76) 91 Room Air 08/01/17 00:00 Room Air 07/31/17 21:02 37.1 83 18 118/74 (89) 92 Room Air 07/31/17 20:00 93 Room Air 07/31/17 16:00 93 Room Air 07/31/17 15:00 36.3 80 18 118/74 (89) 93 Room Air 07/31/17 12:47 36.4 84 18 104/59 (74) 96 Room Air 07/31/17 12:01 93 Room Air Physical Exam General Appearance: WD/WN, no apparent distress Neck: supple, no adenopathy Respiratory/Chest: chest non-tender, lungs clear, normal breath sounds, no respiratory distress Cardiovascular: regular rate, rhythm, no edema, no murmur Abdomen: non tender, soft Extremities: non-tender, no pedal edema Neurologic/Psychiatric: alert, normal mood/affect, oriented x 3 Skin: normal color, warm/dry, no rash Laboratory Results 08/01/17 06:24 Red Blood Count 3.34, Mean Corpuscular Volume 87.7, Mean Corpuscular Hemoglobin 30.8, Mean Corpuscular Hemoglobin Concent 35.2, Mean Platelet Volume 9.4, Neutrophils (%) (Auto) 74.8, Lymphocytes (%) (Auto) 14.8, Monocytes (%) (Auto) 9.5, Eosinophils (%) (Auto) 0.6, Basophils (%) (Auto) 0.1, Neutrophils # (Auto) 6.28, Lymphocytes # (Auto) 1.24, Monocytes # (Auto) 0.80, Eosinophils # (Auto) 0.05, Basophils # (Auto) 0.01 4/15/18 06:24 Test 07/31/17 22:01 08/01/17 06:24 08/01/17 08:05 Troponin I 0.546 ng/ml (0-0.045) White Blood Count 8.40 K/uL (4.8-10.8) Red Blood Count 3.34 M/uL (4.2-5.4) Hemoglobin 10.3 g/dL (12.0-16.0) Hematocrit 29.3 % (37-47) Mean Corpuscular Volume 87.7 fL (80-100) Mean Corpuscular Hemoglobin 30.8 pg (25-34) Mean Corpuscular Hemoglobin Concent 35.2 g/dl (32-36) Platelet Count 185 K/uL (130-400) Mean Platelet Volume 9.4 fL (7.4-10.4) Neutrophils (%) (Auto) 74.8 % Lymphocytes (%) (Auto) 14.8 % Monocytes (%) (Auto) 9.5 % Eosinophils (%) (Auto) 0.6 % Basophils (%) (Auto) 0.1 % Neutrophils # (Auto) 6.28 K/uL (1.4-6.5) Lymphocytes # (Auto) 1.24 K/uL (1.2-3.4) Monocytes # (Auto) 0.80 K/uL (0.11-0.59) Eosinophils # (Auto) 0.05 K/uL (0-0.5) Basophils # (Auto) 0.01 K/uL (0-0.2) RDW Standard Deviation 45.6 fL (36.4-46.3) RDW Coefficient of Variation 14.2 % (11.5-14.5) Immature Granulocyte % (Auto) 0.2 % Immature Granulocyte # (Auto) 0.02 K/uL (0.00-0.02) Prothrombin Time 12.1 SECONDS (9.0-12.0) Prothromb Time International Ratio 1.2 (0.9-1.1) Activated Partial Thromboplast Time 56.6 SECONDS (21.0-31.0) Partial Thromboplastin Ratio 2.2 Anion Gap 4.0 mmol/L (3-11) Est Creatinine Clear Calc Drug Dose 55.7 ml/min Estimated GFR () 61.9 Estimated GFR (Non- 53.4 BUN/Creatinine Ratio 19.1 (10-20) Calcium Level 9.0 mg/dl (8.5-10.1) Magnesium Level 1.7 mg/dl (1.8-2.4) Total Bilirubin 0.8 mg/dl (0.2-1) Direct Bilirubin 0.3 mg/dl (0-0.2) Aspartate Amino Transf (AST/SGOT) 420 U/L (15-37) Alanine Aminotransferase (ALT/SGPT) 378 U/L (12-78) Alkaline Phosphatase 69 U/L (45-117) Total Protein 6.1 gm/dl (6.4-8.2) Albumin 2.5 gm/dl (3.4-5.0) Assessment and Plan 72 Female s/p left knee replacement on 07/28 presents to [facility] with dyspnea. She reports decreased PO intake since the surgery and prior to admission experienced dyspnea, diaphoresis, hypoxia and hypotension. The patient was found to have elevated troponin, LFT's, Cr and lactic acid. Trops have trended down since admission. The following differential was considered; PE, atypical GA and sepsis and the patient was subsequently started on a heparin drip and IVF. Chest CT was performed today following hydration and recovery of Cr and showed bilateral PE. 08/01 Patient is doing well clinically this am, but her LFT's cont to trend up. Bilateral Pulmonary Embolism--s/p recent knee replacement -d/c heparin drip and starting xarelto tonight. -EKG q am and with chest pain - start coum Transaminitis -Possibly 2/2 dehydration, poor PO intake, liver shock -Follow LFT's -GTT, hep panel ordered -Considering abdominal USG if no improvement, and pending above test results ERIC -Likely prerenal cause--resolving with hydration s/p recent Left knee replacement - No sign of infection at this time. - Follow -PT/OT ordered Subpleural nodularity incidentally found on CT -[address] scan recommended HTN -Continue Metoprolol HLD -Continue Crestor Gout -Holding allopurinol Depression/anxiety -Celexa, Xanax DVT; IV heparin, ASA Full code PT/OT Reviewed: Pt Seen/Exam by Me History no concerns overnight. Constitutional: denies: fever Respiratory: negative: short of breath Cardiovascular: denies chest pain General Appearance: no apparent distress Respiratory: lungs clear, no respiratory distress Cardiovascular: regular rate, rhythm Gastrointestinal: soft Extremities: other (left knee with some swelling but improved warmth. ) Neurologic/Psychiatric: alert, oriented x 3 Skin Characteristics: warm/dry Assessment/Plan Resident Physician Supervision Note: I independently interviewed and examined the patient and verified the bach history and physical, reviewed labs and image studies, discussed the case with the resident Dr. Guerrero and agree with the findings and care plan.
--- NOTE | 2017-08-01 13:35 | ECHOCARDIOGRAM REPORT ---
*NOTICE TO RECEIVING [employer] This information is strictly Confidential and protected under [place] law. [place] law prohibits you from making any further disclosure of this information unless further disclosure is expressly permitted by the written consent of the person to whom it pertains or is authorized by law. A general authorization for the release of medical or other information is not sufficient for this purpose. Hospital accepts no responsibility if the information is made available to any other person, INCLUDING THE PATIENT. Interpretation Summary * Name: OUMOU SAGE Study Date: 08/01/2017 06:52 AM BP: 104/64 mmHg * Patient Location: [facility]\S\N285\S\2 HR: 70 * : 1945 (M/d/yyyy) Gender: Female Height: 62 in * Age: 72 yrs Ethnicity: CT Weight: 230 lb * Ordering Physician: Jessica Canchola * Performed By: Shea Sandoval RDCS * * Reason For Study: ELEVATED TROP * BSA: 2.0 m2 * -- Conclusions -- * Technically difficult study despite use of Definity ultrasound contrast. * 1. Normal LV size. Mild concentric LVH. * 2. Normal LV systolic function. LVEF 55-60 %. Flattened septum consistent with RV volume overload. * 3. RV not well visualized. Appears mildly dilated. * 4. Aortic valve sclerosis without stenosis. * 5. Normal estimated PA and RA pressures. * 6. No prior studies for comparison. Procedure Details * A complete two-dimensional transthoracic echocardiogram was performed (2D, M-mode, Doppler and color flow Doppler). * The study was technically limited. * The study was technically difficult. * There were technical limitations due to patient'sbody habitus * A contrast injection of Definity was performed to improve assessment of LV function. * Contrast was injected into an intravenous site in the left arm. * One vial of Definity ultrasound contrast was diluted in normal saline to a total volume of 10 ml. A total of '3' ml of solution was administered during imaging. * Lot # [id number] of Definity utilized for procedure. * Expiration date 08/05. * The attending nurse who injected the contrast agent was KAILYN DESIR RN. Left Ventricle * The left ventricle is grossly normal size. * There is mild concentric left ventricular hypertrophy. * Ejection Fraction = 55-60%. * Flattened septum is consistent with RV volume overload. Right Ventricle * The right ventricle is not well visualized. * The right ventricle is mildly dilated. Atria * The left atrium is not well visualized. * Right atrium not well visualized. * No ASD detected; PFO is not assessed. Mitral Valve * The mitral valve is grossly normal. * There is no mitral valve stenosis. * Significant mitral regurgitation is absent. Tricuspid Valve * There is trace tricuspid regurgitation. Aortic Valve * The aortic valve opens well. * Aortic valve sclerosis mild, without significant aortic valvular stenosis. * The aortic valve is trileaflet. * No hemodynamically significant valvular aortic stenosis. * There is no significant aortic regurgitation. Pulmonic Valve * The pulmonary valve is inadequately visualized, but the Doppler data is adequate for interpretation. * There is no pulmonic valvular stenosis. * Trace pulmonic valvular regurgitation. Great Vessels * The aortic root and proximal ascending aorta are normal sized. Pericardium/Pleural * There is no pericardial effusion. MMode 2D Measurements and Calculations IVSd 1.4 cm IVSs 2.2 cm LVIDd 3.4 cm LVIDs 2.3 cm LVPWd 1.3 cm LVPWs 1.6 cm IVS/LVPW 1.0 FS 32.1 % EDV(Teich) 48.7 ml ESV(Teich) 18.8 ml EF(Teich) 61.5 % EDV(cubed) 40.6 ml ESV(cubed) 12.7 ml EF(cubed) 68.7 % % IVS thick 61.4 % % LVPW thick 23.2 % LV mass(C)d 153.5 grams LV mass(C)dI 75.7 grams/m\S\2 LV mass(C)s 178.9 grams LV mass(C)sI 88.2 grams/m\S\2 SV(Teich) 29.9 ml SI(Teich) 14.8 ml/m\S\2 SV(cubed) 27.9 ml SI(cubed) 13.8 ml/m\S\2 ACS 1.6 cm LA dimension 4.2 cm asc Aorta Diam 3.2 cm LVOT diam 1.8 cm LVOT area 2.5 cm\S\2 Doppler Measurements and Calculations MV E max dev 49.8 cm/sec MV A max dev 72.1 cm/sec MV E/A 0.69 MV dec time 0.23 sec Ao V2 max 82.0 cm/sec Ao max PG 2.7 mmHg Ao max PG (full) 2.1 mmHg RADHA(V,A) 1.1 cm\S\2 RADHA(V,D) 1.1 cm\S\2 LV V1 max PG 0.57 mmHg LV V1 max 37.8 cm/sec PA V2 max 48.5 cm/sec PA max PG 0.94 mmHg TR max dev 237.3 cm/sec
[2017-08-01] MEDS: RIVAROXABAN TAB 15 MG TAB PO SCH ×2 (13:52→20:30)
[2017-08-01] MEDS ORDERED: WARFARIN SOD 5 MG TAB PO SCH (16:00)
--- NOTE | 2017-08-01 22:40 | DIAGNOSTIC IMAGING REPORT ---
(LIVER) ABDOMEN LIMITED CLINICAL HISTORY: 72 years-old Female presenting with r/o portal thrombosis . TECHNIQUE: Real-time grayscale and limited color Doppler ultrasound imaging of the abdomen limited to the right upper quadrant was performed. COMPARISON: None. FINDINGS: Pancreas: Visualized portions of the pancreatic head and body normal. Top normal pancreatic duct size, measuring 3 mm in the pancreatic head. Liver: Moderately hyperechogenic parenchyma with partial obscuration of the right hemidiaphragm, likely indicating moderate steatosis. The liver measures 18.6 cm in maximal sagittal dimension. No sonographic evidence of hepatic mass. Main portal vein patent with normal directional flow. Biliary: No intrahepatic biliary ductal dilatation. Common bile duct measures up to 6 mm in diameter. Gallbladder: Surgically absent. Right kidney: Normal in appearance. No hydronephrosis. Ascites: None. Other: None. IMPRESSION: 1. Status post cholecystectomy. No biliary ductal dilatation. 2. Hepatic steatosis. Correlate with liver function tests to exclude steatohepatitis as a cause for abdominal pain. Electronically signed by: Cirilo Villafana M.D. 08/01/2017 10:39 PM Dictated Date/Time: 08/01/2017 10:37 PM
--- NOTE | 2017-08-01 22:43 | DIAGNOSTIC IMAGING REPORT ---
DUPLEX PORTAL HEPATIC VEINS CLINICAL HISTORY: 72 years-old Female presenting with r/o thrombosis. TECHNIQUE: Real-time grayscale and color and spectral Doppler ultrasound imaging of the aorta and mesenteric vessels was performed. COMPARISON: None. FINDINGS: Portal veins: Main portal vein patent with antegrade flow and gentle undulating waveforms. Peak velocity approximately 25 cm/s, which is normal. Left and right portal veins patent with normal directional flow. Hepatic veins: Normal triphasic waveforms in the left, middle, and right hepatic veins, which are patent. Hepatic artery: Patent with normal arterial waveform and normal peak systolic velocity of 62 cm/s. Splenic vein: Patent. IMPRESSION: 1. Patent hepatic vasculature. No evidence of portal vein thrombosis as clinically queried. Electronically signed by: Cirilo Villafana M.D. 08/01/2017 10:42 PM Dictated Date/Time: 08/01/2017 10:39 PM
[2017-08-01] MEDS: ALPRAZOLAM 0.5 MG TAB PO SCH (23:13)
--- NOTE | 2017-08-01 23:29 | Progress Note ---
Post ICU Progress Note Date & Time Aug 01, 2017 at 23:22 Vital Signs Vital Signs Past 12 Hours Date Time Temp Pulse Resp B/P (MAP) Pulse Ox O2 Delivery O2 Flow Rate FiO2 08/01/17 20:00 Room Air 08/01/17 19:50 36.9 89 20 141/79 (99) 92 Room Air 08/01/17 16:00 Room Air 08/01/17 15:30 36.5 84 18 124/74 (91) 95 Room Air 08/01/17 12:52 36.5 78 18 97/ (32) 97 Room Air 67.0 08/01/17 12:00 Room Air Notes Mental Status: alert / awake, participated in evaluation Nausea / Vomiting: adequately controlled Pain: adequately controlled Airway Patency, RR, SpO2: stable & adequate BP & HR: stable & adequate [place] Estrella is a 72-year-old female who was a direct admit to [facility] on July 30 from [facility] for presumed septic shock status post a left knee arthroplasty. However when patient arrived her blood pressures had resolved with fluid resuscitation only. No sign of infection could be found. Patient did undergo bilateral lower leg duplexes for DVTs which were negative. Once patient's renal function improved she did undergo CTA which demonstrated pulmonary embolism and was started on heparin infusion. Of note when I examined her today she been transitioned to oral anticoagulation and her heparin infusion has been discontinued. During her stay in the ICU she did not require intubation, central line and arterial line placement or other invasive monitoring. Upon my examination patient was resting comfortably without complaint. She says she has been up and walking some. She is anxious to go home. Consider outpatient follow up in 1 to 2 weeks with: Scott Morris PA-C Repeat imaging needed: None Follow up cultures: Not Indicated Reviewed progress notes, labs, and inpatient medication list Continue current management Additional recommendations: None Medical care will sign off at this time. Thank you for including us in the care of this patient, please feel free to reconsult as needed. [facility] inpatient billing Thank you for including us in the care of this patient. Please review Dr. Florentin Mahajan's addendum for further recommendations.
[2017-08-02 04:00] VITALS: BP 123/79; PULSE 80; TEMP 36.7; O2SAT 93
[2017-08-02 06:22] LABS: BASO % 0.1 %; BASO ABS # 0.01 K/uL (0-0.2); EOS % 1.5 %; EOS ABS # 0.11 K/uL (0-0.5); HEMOGLOBIN 10.4 g/dL (12.0-16.0); IG# 0.02 K/uL (0.00-0.02); LYMPH % 15.8 %; LYMPH ABS # 1.13 K/uL (1.2-3.4); MEAN CORPUSCULAR HEMOGLOBIN 30.5 pg (25-34); MEAN CORPUSCULAR HGB CONC 34.7 g/dl (32-36); MEAN PLATELET VOLUME 9.3 fL (7.4-10.4); MONO % 10.5 %; MONO ABS # 0.75 K/uL (0.11-0.59); NEUT % 71.8 %; NEUT ABS # 5.11 K/uL (1.4-6.5); PLATELET COUNT 202 K/uL (130-400); RED CELL DISTRIBUTION WIDTH CV 14.4 % (11.5-14.5); RED CELL DISTRIBUTION WIDTH SD 45.6 fL (36.4-46.3); WHITE BLOOD COUNT 7.13 K/uL (4.8-10.8)
[2017-08-02 06:29] LABS: INR 1.3 (0.9-1.1); PTT PATIENT 34.1 SECONDS (21.0-31.0)
[2017-08-02 07:01] LABS: ALBUMIN 2.4 gm/dl (3.4-5.0); CALCIUM 9.5 mg/dl (8.5-10.1); CREATININE 0.85 mg/dl (0.60-1.20); POTASSIUM 3.2 mmol/L (3.5-5.1); TOTAL PROTEIN 6.1 gm/dl (6.4-8.2)
[2017-08-02] MEDS: CITALOPRAM 20 MG TAB PO SCH (08:29)
[2017-08-02] MEDS: METOPROLOL TARTRATE 25 MG TAB PO SCH (08:29)
[2017-08-02] MEDS: ASPIRIN 81 MG ECTAB PO SCH (08:30)
[2017-08-02] MEDS: PANTOprazole SOD 40 MG TAB PO SCH (08:30)
[2017-08-02] MEDS: RIVAROXABAN TAB 15 MG TAB PO SCH (08:30)
[2017-08-02] MEDS: ROSUVASTATIN CALCIUM 5 MG TAB PO SCH (08:30)
[2017-08-02 08:32] VITALS: BP 122/76; PULSE 84; TEMP 37.2; O2SAT 92
[2017-08-02] MEDS ORDERED: POTASSIUM CHLORIDE 20 MEQ TABCR PO STA (08:36)
[2017-08-02 13:55] VITALS: BP 122/74; PULSE 84; O2SAT 94
[2017-08-02 15:32] VITALS: BP 123/78; PULSE 86; TEMP 36.8; O2SAT 93
[2017-08-02] MEDS ORDERED: RIVA1TAB4 PO (16:27)
[2017-08-02] MEDS ORDERED: XRL15 PO (16:27)
--- NOTE | 2017-08-02 16:51 | Discharge Instructions ---
Discharge Instructions Date of Service Aug 02, 2017. Admission Reason for Admission: SHOCK Discharge Discharge Diagnosis / Problem: Pulmonary Embolism Discharge Goals Goal(s): Increase independence, Improve disease control, Therapeutic intervention Activity Recommendations Activity Limitations: per Instructions/Follow-up section . Instructions / Follow-Up Instructions / Follow-Up During this visit, you were evaluated and treated for a pulmonary embolus ( blood clot in lung), kidney injury, and abnormal liver tests. As discussed, these three issues are likely all related to the clot in your lung. Because of the clot in the lung, your heart had to work harder than usual , which caused some strain on your heart. This strain caused an elevation in your heart enzymes, which, when combined with your symptoms, may have made some think you were having a heart attack. The good news is that we ruled that out, and it has been confirmed that you did NOT have a heart attack. Because your heart was working harder than it should have, there was less blood flow to both your kidneys and your liver. Fortunately, it appears this has resolved nicely. You will be given a prescription to have labwork done in 2 days time to ensure your numbers are looking good. This labwork will be forwarded to your primary care doctor. You will need to be seen by your PCP in the next 7-10 days to discuss this visit to the hospital, your follow up labwork, and your new medication. For the clot in the lung, you will need to take a new medication, which is a blood thinner called xarelto (rivaroxaban). You will take a lower dose of this , 15 mg, twice daily, for 3 weeks. After 3 weeks, you will be taking the higher dose (20 mg) ONCE daily for about 3 -6 months (your PCP will determine length of treatment). Be very careful to separate these meds so as to take the correct amount and dose of pills! Follow up with orthopedics for your knee as planned. If you notice your symptoms returning or worsening, please call your PCP and/or return to the ED. As mentioned above, follow up with your PCP in 7-10 days Current Hospital Diet Patient's current hospital diet: AHA Diet (Heart Healthy) Discharge Diet Recommended Diet: AHA Diet (Heart Healthy) Pending Studies Studies pending at discharge: no Medical Emergencies . Who to Call and When: Medical Emergencies: If at any time you feel your situation is an emergency, please call 911 immediately. . Non-Emergent Contact Non-Emergency issues call your: Primary Care Provider . . "Provider Documentation" section prepared by Mary Edwards. .
[2017-08-02 16:55] VITALS: BP 123/78; PULSE 86; TEMP 36.8; O2SAT 93
--- NOTE | 2017-08-02 18:37 | Discharge Summary ---
Discharge Summary Date of Service Aug 02, 2017. Discharge Summary Admission Date: Jul 30, 2017 at 21:19 Discharge Date: Aug 02, 2017 Discharge Disposition: Home Principal Diagnosis: pulmonary embolism, R heart strain, shock liver Procedures: echo: Interpretation Summary * Name: OUMOU SAGE Study Date: 08/01/2017 06:52 AM BP: 104/64 mmHg * Patient Location: [facility]\S\N285\S\2 HR: 70 * : 1945 (M/d/yyyy) Gender: Female Height: 62 in * Age: 72 yrs Ethnicity: SC Weight: 230 lb * Ordering Physician: Jessica Canchola * Performed By: Shea Sandoval RDCS * * Reason For Study: ELEVATED TROP * BSA: 2.0 m2 * -- Conclusions -- * Technically difficult study despite use of Definity ultrasound contrast. * 1. Normal LV size. Mild concentric LVH. * 2. Normal LV systolic function. LVEF 55-60 %. Flattened septum consistent with RV volume overload. * 3. RV not well visualized. Appears mildly dilated. * 4. Aortic valve sclerosis without stenosis. * 5. Normal estimated PA and RA pressures. * 6. No prior studies for comparison. Procedure Details * A complete two-dimensional transthoracic echocardiogram was performed (2D, M-mode, Doppler and color flow Doppler). * The study was technically limited. * The study was technically difficult. * There were technical limitations due to patient'sbody habitus * A contrast injection of Definity was performed to improve assessment of LV function. * Contrast was injected into an intravenous site in the left arm. * One vial of Definity ultrasound contrast was diluted in normal saline to a total volume of 10 ml. A total of '3' ml of solution was administered during imaging. * Lot # [id number] of Definity utilized for procedure. * Expiration date 08/05. * The attending nurse who injected the contrast agent was KAILYN DESIR RN. Left Ventricle * The left ventricle is grossly normal size. * There is mild concentric left ventricular hypertrophy. * Ejection Fraction = 55-60%. * Flattened septum is consistent with RV volume overload. Right Ventricle * The right ventricle is not well visualized. * The right ventricle is mildly dilated. Atria * The left atrium is not well visualized. * Right atrium not well visualized. * No ASD detected; PFO is not assessed. Mitral Valve * The mitral valve is grossly normal. * There is no mitral valve stenosis. * Significant mitral regurgitation is absent. Tricuspid Valve * There is trace tricuspid regurgitation. Aortic Valve * The aortic valve opens well. * Aortic valve sclerosis mild, without significant aortic valvular stenosis. * The aortic valve is trileaflet. * No hemodynamically significant valvular aortic stenosis. * There is no significant aortic regurgitation. Pulmonic Valve * The pulmonary valve is inadequately visualized, but the Doppler data is adequate for interpretation. * There is no pulmonic valvular stenosis. * Trace pulmonic valvular regurgitation. Great Vessels * The aortic root and proximal ascending aorta are normal sized. Pericardium/Pleural * There is no pericardial effusion. [~ rep ct add3]] CHEST CTA for PULMONARY ARTERIES CT DOSE: 666.55 mGy.cm HISTORY: Dyspnea. TECHNIQUE: Multiaxial CT images of the chest were performed following the intravenous administration of contrast to evaluate the pulmonary arteries. Maximal intensity projection images were also obtained. A dose lowering technique was utilized adhering to the principles of ALARA. COMPARISON STUDY: None. FINDINGS: Post as we. The visualized liver, spleen, and adrenal glands are unremarkable. Small hiatus hernia. Trace right pleural effusion. No pericardial effusion. The heart is borderline enlarged. No mediastinal or hilar lymphadenopathy. No fractures within the visualized osseous structures. No pneumothorax. The central airways are patent. Bibasilar linear densities consistent with subsegmental atelectasis. Mild pleural/subpleural nodularity within the base of the right lower lobe. The main pulmonary arteries are patent. Normal caliber thoracic aorta with no evidence for dissection. There are few scattered segmental and subsegmental filling defects seen within the right upper lobe, right middle lobe, and bilateral lower lobes consistent with pulmonary emboli. Flattening of the ventricular septum consistent with mild right-sided heart strain. IMPRESSION: 1. Bilateral segmental/subsegmental pulmonary emboli. There appears to be mild right-sided heart strain. 2. Trace right pleural effusion. 3. Question of subtle pleural nodularity within the right lung base. [address] follow-up is recommended to ensure resolution. 4. Bibasilar linear densities are nonspecific but favor subsegmental atelectasis. Electronically signed by: Bruno Newman M.D. 07/31/2017 3:24 PM ULTRASOUND VENOUS DOPPLER LWR EXT BILA CLINICAL HISTORY: Suspected pulmonary embolism. History of total knee arthroplasty. EKG changes. COMPARISON STUDY: No previous studies for comparison. FINDINGS: Real-time and color flow Doppler imaging were performed. Flow was seen within the femoral, popliteal and calf veins with no intraluminal thrombus demonstrated. The saphenous vein is patent. IMPRESSION: No evidence of lower extremity DVT. Electronically signed by: Lui Onofre M.D. 07/31/2017 6:04 AM Dictated Date/Time: 07/31/2017 6:03 AM [~ rep ct add3]] (LIVER) ABDOMEN LIMITED CLINICAL HISTORY: 72 years-old Female presenting with r/o portal thrombosis . TECHNIQUE: Real-time grayscale and limited color Doppler ultrasound imaging of the abdomen limited to the right upper quadrant was performed. COMPARISON: None. FINDINGS: Pancreas: Visualized portions of the pancreatic head and body normal. Top normal pancreatic duct size, measuring 3 mm in the pancreatic head. Liver: Moderately hyperechogenic parenchyma with partial obscuration of the right hemidiaphragm, likely indicating moderate steatosis. The liver measures 18.6 cm in maximal sagittal dimension. No sonographic evidence of hepatic mass. Main portal vein patent with normal directional flow. Biliary: No intrahepatic biliary ductal dilatation. Common bile duct measures up to 6 mm in diameter. Gallbladder: Surgically absent. Right kidney: Normal in appearance. No hydronephrosis. Ascites: None. Other: None. IMPRESSION: 1. Status post cholecystectomy. No biliary ductal dilatation. 2. Hepatic steatosis. Correlate with liver function tests to exclude steatohepatitis as a cause for abdominal pain. Electronically signed by: Cirilo Villafana M.D. 08/01/2017 10:39 PM DUPLEX PORTAL HEPATIC VEINS CLINICAL HISTORY: 72 years-old Female presenting with r/o thrombosis. TECHNIQUE: Real-time grayscale and color and spectral Doppler ultrasound imaging of the aorta and mesenteric vessels was performed. COMPARISON: None. FINDINGS: Portal veins: Main portal vein patent with antegrade flow and gentle undulating waveforms. Peak velocity approximately 25 cm/s, which is normal. Left and right portal veins patent with normal directional flow. Hepatic veins: Normal triphasic waveforms in the left, middle, and right hepatic veins, which are patent. Hepatic artery: Patent with normal arterial waveform and normal peak systolic velocity of 62 cm/s. Splenic vein: Patent. IMPRESSION: 1. Patent hepatic vasculature. No evidence of portal vein thrombosis as clinically queried. Electronically signed by: Cirilo Villafana M.D. 08/01/2017 10:42 PM Last Resulted CBC 08/02/17 05:59 Red Blood Count 3.41, Mean Corpuscular Volume 88.0, Mean Corpuscular Hemoglobin 30.5, Mean Corpuscular Hemoglobin Concent 34.7, Mean Platelet Volume 9.3, Neutrophils (%) (Auto) 71.8, Lymphocytes (%) (Auto) 15.8, Monocytes (%) (Auto) 10.5, Eosinophils (%) (Auto) 1.5, Basophils (%) (Auto) 0.1, Neutrophils # (Auto ) 5.11, Lymphocytes # (Auto) 1.13, Monocytes # (Auto) 0.75, Eosinophils # (Auto ) 0.11, Basophils # (Auto) 0.01 Last Resulted BMP 08/02/17 05:59 Item Value Date Time Magnesium Level 1.6 mg/dl L 08/02/17 0559 Total Bilirubin 0.9 mg/dl 08/02/17 0559 Direct Bilirubin 0.3 mg/dl H 08/02/17 0559 Aspartate Amino Transf (AST/SGOT) 249 U/L H 08/02/17 0559 Alanine Aminotransferase (ALT/SGPT) 351 U/L H 08/02/17 0559 Alkaline Phosphatase 72 U/L 08/02/17 0559 Total Protein 6.1 gm/dl L 08/02/17 0559 Albumin 2.4 gm/dl L 08/02/17 0559 Medication Reconciliation New Medications: Rivaroxaban (Xarelto) 20 Mg Tab 20 MG PO DAILY for 30 Days, #30 TAB Rivaroxaban (Xarelto) 15 Mg Tab 15 MG PO BID for 20 Days, #40 TAB Continued Medications: Allopurinol (Zyloprim) 100 Mg Tab 1 TAB PO DAILY for 30 Days, #30 TAB 5 Refills Alprazolam (Xanax) 0.5 Mg Tab 0.5 MG PO HS, TAB Aspirin (Aspirin) 325 Mg Tab 325 MG PO BID Atenolol/Chlorthalidone (Tenoretic 50 Mg/25 Mg) 50 Mg/25 Mg Tab 1 TAB PO DAILY, TAB Citalopram Hydrobromide (Citalopram Hydrobromide) 20 Mg Tab 1 TAB PO DAILY for 30 Days, #30 TAB 5 Refills Hydrocodon/Acetaminophen 5MG/300MG (Vicodin (5MG/300MG)) 1 Tab Tab 2 TABS PO Q4H PRN for Pain, TAB Melatonin (Melatonin Maximum Strengt) 5 Mg Tab 1 TAB PO HS for 30 Days, #30 TAB Omeprazole (Prilosec) 20 Mg Capcr 20 MG PO DAILY, CAP Polyethylene Glycol 3350 (Miralax) 1 Pow Pow 17 GM PO DAILY, #527 GM Rosuvastatin Calcium (Crestor) 5 Mg Tab 5 MG PO DAILY for 30 Days, #30 TAB 5 Refills Discharge Exam Physical Exam: General Appearance: no apparent distress Eyes: EOMI Neck: trachea midline Respiratory/Chest: no respiratory distress, no accessory muscle use Neurologic/Psychiatric: body man II-XII nml as tested, alert Skin: normal color, warm/dry Hospital Course 72 Female s/p left knee replacement on 07/28 presents to [facility] with dyspnea. She reports decreased PO intake since the surgery and prior to admission experienced dyspnea, diaphoresis, hypoxia and hypotension. The patient was found to have elevated troponin, LFT's, Cr and lactic acid. Trops have trended down since admission. The following differential was considered; PE, atypical WI and sepsis and the patient was subsequently started on a heparin drip and IVF. Chest CT was performed today following hydration and recovery of Cr and showed bilateral PE - making dx of PE as central problem, troponin elevation was due to right heart strain, elevated LFTs (improving) related to shock liver Bilateral Pulmonary Embolism--s/p recent knee replacement -xarelto - 15mg bid x 21 days then 20mg daily thereafter for 3-6 months depending on clinical progress -discussed risks/benefits, bleed risk -discussed future clot risk and prevention in provoking situations Transaminitis -improving - likely shock liver from poor perfusion from above -continue to follow as outpt, liver US nonspecific -CMP later this week ERIC -Likely prerenal cause-poor forward flow from PEs - improving. CMP later this week s/p recent Left knee replacement -stable for outpt management, did well w PT Subpleural nodularity incidentally found on CT -[address] scan recommended HTN -Continue Metoprolol HLD -Continue Crestor Gout -Holding allopurinol Depression/anxiety -Celexa, Xanax stable for discharge to home, PCP later this week, CMP later this week, otherwise as above extensively explained to pt and family, answered all questions to the best of my ability Total Time Spent: Greater than 30 minutes This includes examination of the patient, discharge planning, medication reconciliation, and communication with other providers. Discharge Instructions Please refer to the electronic Patient Visit Report (Discharge Instructions) for additional information. Additional Copies To Scott Morris PA-C
[2017-08-03 09:37] LABS: HEPATITIS A IGM TC 51813E NON-REACTIVE (NON-REACTIVE); HEPATITIS B CORE IGM TC51854R NON-REACTIVE (NON-REACTIVE)
== END 2017-08-02 17:49 | disposition home or self-care (01) | DRG 441 ==
LOC: C.MSICU 21:19 → ENRESERV 07-31 10:11 → C.MED 07-31 10:57
PROVIDERS: ADMIT Anesthesiology Critical Care Medicine; ATTEND Family Medicine
DX: K72.00 Acute and subacute hepatic failure without coma (principal); I26.99 Other pulmonary embolism without acute cor pulmonale; N17.0 Acute kidney failure with tubular necrosis; E87.2 Acidosis; Z68.41 Body mass index [BMI] 40.0-44.9, adult; E86.0 Dehydration; I11.9 Hypertensive heart disease without heart failure; R91.8 Other nonspecific abnormal finding of lung field; E78.5 Hyperlipidemia, unspecified; M10.9 Gout, unspecified; F41.9 Anxiety disorder, unspecified; F32.9 Major depressive disorder, single episode, unspecified; E66.9 Obesity, unspecified; Z51.81 Encounter for therapeutic drug level monitoring; Z79.899 Other long term (current) drug therapy; Z79.82 Long term (current) use of aspirin; Z86.73 Personal history of transient ischemic attack (TIA), and cerebral infarction without residual deficits; Z96.652 Presence of left artificial knee joint; Z88.2 Allergy status to sulfonamides